=== PATIENT | male | born 1970 ===

== ENCOUNTER 2018-12-04 11:47 | Outpatient (CLI) | payer BC ==
--- NOTE | 2018-12-04 14:27 | RAD ---
CHEST 2 VIEWS: Date: 12/04/18 HISTORY: J11. Shortness of breath. COMPARISON: None. FINDINGS: Lungs are clear. No pneumothorax or effusion. Cardiac silhouette and mediastinal contours are within normal limits. IMPRESSION: No acute intrathoracic abnormality. POS: [facility]
== END 2018-12-04 11:48 | disposition home or self-care (01) ==
LOC: SCSRAD 11:47
PROVIDERS: ATTEND Family Medicine
DX: J11.00 Influenza due to unidentified influenza virus with unspecified type of pneumonia (principal)
CPT/HCPCS: 71046